=== PATIENT | male | born 1995 | race Caucasian/White ===

== ENCOUNTER 2019-10-13 20:12 | Emergency (ER) | payer OTHER ==
[~2019-10-13] VITALS: Ht 175.3 cm; Wt 61.2 kg
--- OUTSIDE RECORDS SUMMARY | ~2019-10-13 | XMS | Encounter Summary ---
Demographics + + + | Address | [address] | | | [place] [address] | + + + | Home Phone | | + + + | Preferred Language | Unknown | + + + | Marital Status | Single | + + + | Gnosticist Affiliation | Unknown | + + + | Race | Unknown | + + + | Ethnic Group | Unknown | + + + Author + + + | Author | [facility] | | | and Dariusana | + + + | Organization | [facility] | | | and Dariusana | + + + | Address | Unknown | + + + | Phone | Unavailable | + + + Support + + +---------+ + | Name | Relationship | Address | Phone | + + +---------+ + | June Salcedo | ECON | Unknown | Unavailable | + + +---------+ + Care Team Providers + +------+ + | Care Toe Puncher Name | Role | Phone | + +------+ + PCP | Unavailable | + +------+ + Encounter Details +--------+ + + + + | Date | Type | Department | Care Team | Description | +--------+ + + + + | 10/16/ | Emergency | [facility] | Liza Stephens, | Ureterolithiasis; | | 2014 | | MEDICAL CENTER | [facility] [address] | Renal colic; | | | | EMERGENCY CENTER | [place] [address] | Hydrocele, right | | | | [address] | [phone] | | | | | [place], [place] | | | | | | [address] | | | | | | [phone] | | | +--------+ + + + + Social History + +-------+ +--------+------+ | Tobacco Use | Types | Packs/Day | Years | Date | | | | | Used | | + +-------+ +--------+------+ | Current Every Day | | 1 | | | | Smoker | | | | | + +-------+ +--------+------+ + + + | Sex Assigned at | Date Recorded | | | | + + + | Not on file | | + + + documented as of this encounter ED Notes Conversion Transaction, Provider Unknown - 10/16/2014 6:46 PM PDTFormatting of this note m ight be different from the original. ED Notes by Elvin Lora RN at 10/16/14 2899 Author: Elvin Lora RN Service: (none) Author Type: Registered Nurse Filed: 10/16/141845 Date of Service: 10/16/141845 Status: Signed Individual Pension Consultant: Elvin Lora RN (Registered Nurse) Urine red in color, dip not done, sample sent to lab. Elvin Lora RN 10/16/141845 Liza Oliver MD - 10/16/2014 5:31 PM PDTFormatting of this note might be different from the or iginal. ED Provider Notes by Gretchen Stephens MD at 10/16/141730 Author: Gretchen Stephens MD Service: (none) Author Type: Physician Filed: 10/17/14 0229 Date of Service: 10/16/141730 Status: Signed Individual Pension Consultant: Gretchen Stephens MD (Physician) [facility] Department of Emergency Medicine History of Present Illness Patient Identification Kobe Salcedo is a 18 y.o. male. Patient information was obtained from patient and parent. History/Exam limitations: none. Patient presented to the Emergency Department by: Car Chief Complaint Chief Complaint Patient presents with Hematuria david blood with hx of stones Testicle Pain known testicular cyst The patient complains of hematuria and testicle pain. Onset of symptoms was 1 month ago, wi th a constant course since that time. The patient also complains of hematuria (onset 3 days ago) and right flank pain over this same time period. Denies any further complaints. Mother reports that the pt has been passing kidney stones. The patient describes the quality and lo cation of the symptoms as the following: testicle pain that he had an US done for where he w as told that he had a testicular cyst and that this was not going to need treatment. Pt was seen by a urologist for this and was told that there was no surgical procedure they could do since he was to young but was told to come to the ED if his pain worsened. Pt was sent over by his PCP for more imaging done today. There was no other care prior to arrival. History reviewed. No pertinent past medical history. History reviewed. No pertinent past surgical history. Prior to Admission medications Not on File No Known Allergies History Social History Marital Status: Single Spouse Name: N/A Number of Children: N/A Years of Education: N/A Occupational History Not on file. Social History Main Topics Smoking status: Current Every Day Smoker -- 1.00 packs/day for 5 years Smokeless tobacco: Not on file Alcohol Use: No Drug Use: No Sexual Activity: Not on file Other Topics Concern Not on file Social History Narrative No narrative on file History reviewed. No pertinent family history. Review of Systems Constitutional: No fever ENT: No blindness, no rhinitis, no sore throat Cardiovascular: No chest pain Respiratory: No shortness of breath, cough Gastrointestinal: No abdominal pain, N/V/D, black or bloody stools Genitourinary: Yes testicular pain, hematuria No dysuria Musculoskeletal: Yes flank pain Skin: No laceration or rash Neuro and psych: No head injury, seizure, headache Endocrine/Heme/Lymph: No easy bruising or bleeding. Physical Exam BP 119/58 mmHg | Pulse 68 | Temp(Src) 98.8 F (37.1 C) (Temporal) | Resp 18 | Ht 1.753 m (5' 9.02") | Wt 64.4 kg (141 lb 15.6 oz) | BMI 20.96 kg/m2 | SpO2 98% Vital Sign interpretation: WNL Pulse Oximetry interpretation: Normal General: Alert, in no apparent distress Eyes: Non-icteric ENT: Normal external exam Neck: Supple Cardiovascular: Warm and well perfused Respiratory: No respiratory distress Extremities: DEL REAL Back: Normal ROM Skin: Color normal Warm and dry No rash Neuro: Alert, no AMS No gross motor/sensory deficits Medical Decision Making and Emergency Department Course ED Department Course Pt's testicular pain was evaluated previously and he was found to have a cyst (hydrocele I believe), which did not require treatment. He has been doing pretty well until the last thr ee days, where he has had hematuria and flank pain. He was told to come for eval. [facility], I think this is the most likely source of sx. Will check with CT renal and make sure labs ok. 6:21 PM: CT renal stone reviewed. 6:24 PM: Labs reviewed. 7:04 PM: Urine reviewed. 7:07 PM: US reviewed. Pt has a very large 9mm stone at the UVJ. It is not currently obstructive. This will nee d removal almost for sure. He has a urologist in [place] and mom would like to call him i n the AM. No signs of infection. He does not like stronger pain meds and is declining a sc ript for them at this time. I will write for flomax, [place], but I am not expecting it to work. 7:41 PM: Patient reevaluation. Patient is stable and feeling better at this time. I discuss ed all ED results and my clinical impression with the patient. Patient is ready for discharg e after dose of Flomax. I advised patient to follow up with Dr. Holloway, urologist in [place] and we discussed the emergent signs and symptoms that would necessitate a return to ED. The patient understands and agrees with the plan. All questions and concerns addressed. Will akilah fletcher home with an Rx for Flomax. ED Medication Administration from 10/16/2014 1632 to 10/16/20142158 Date/Time Order Dose Route Action Action by 10/16/20142005 tamsulosin (FLOMAX) capsule 0.4 mg 0.4 mg Oral Given Truman Franco Records Reviewed Old medical records. Nursing notes. Laboratory Evaluation Results Procedure Component Value Ref Range Date/Time Culture, Urine [[id number]] Collected: 10/16/141838 Order Status: Sent Specimen Information: Urine / Urine, Clean Catch Updated: 10/16/142127 Urine Microscopic [[id number]] (Abnormal) Collected: 10/16/141838 Order Status: Completed Specimen Information: Urine / Urine, Clean Catch Updated: 01/20 190 WBC 1-5 0 - 5 /hpf RBC >100 0 - 2 /hpf EPITHELIAL 1-5 /lpf BACTERIA 1+ (A) NONE SEEN Mucus, UA 1+ Complete Metabolic Panel [[id number]] Collected: 10/16/14 175 Order Status: Completed Specimen Information: Blood Updated: 10/16/141823 SODIUM 141 135 - 143 mmol/L POTASSIUM 3.7 3.3 - 4.7 mmol/L CHLORIDE 106 99 - 109 mmol/L CO2 29 23 - 32 mmol/L ANION GAP AGAP 9 5 - 20 mmol/L GLUCOSE 85 65 - 99 mg/dL BUN 9 8 - 25 mg/dL CREATININE 0.90 0.70 - 1.30 mg/dL BUN/CREAT 10 CALCIUM 8.8 8.5 - 10.5 mg/dL TOTAL PROTEIN 7.6 6.1 - 8.0 g/dL Albumin 4.1 3.3 - 4.7 g/dL GLOBULIN 3.5 1.3 - 4.9 g/dL A/G 1.2 1.0 - 2.4 TBIL 0.7 0.1 - 2.0 mg/dL ALK PHOS 92 49 - 210 U/L AST 12 <40 U/L ALT 17 10 - 65 U/L EGFR >60 mL/min/1.73m2 Result: CALCULATION NOT PERFORMED. RESULT NOT VALID IF AGE LT 20 YEARS. CBC w Auto Diff [[id number]] Collected: 10/16/14 3121 Order Status: Completed Specimen Information: Blood Updated: 10/16/14 1809 WBC 7.10 4.50 - 11.00 K/uL RBC 4.63 4.50 - 5.30 M/uL HGB 14.9 13.0 - 16.0 g/dL HCT 42.4 37.0 - 49.0 % MCV 91.7 78.0 - 98.0 fl MCH 32.1 25.0 - 35.0 pg MCHC 35.0 31.0 - 37.0 g/dL RDW SD 42.0 37 - 53 fl PLT 190 150 - 450 K/uL MPV 7.7 fl DIFF TYPE AUTOMATED NEUTROPHILS 59.95 % LYMPHOCYTES 30.79 % MONOCYTES 7.69 % EOSINOPHILS 1.06 % BASOPHILS 0.51 % NEUTROPHILS ABS 4.26 1.50 - 7.00 K/uL LYMPHOCYTES ABS 2.19 1.10 - 4.50 K/uL MONOCYTES ABS 0.55 0.00 - 0.90 K/uL EOSINOPHILS ABS 0.08 0.00 - 0.20 K/uL BASOPHILS ABS 0.04 0.00 - 0.10 K/uL I personally reviewed the lab results and they have been posted to the chart. Pertinent po sitive and negative findings have been addressed appropriately. Radiology and EKG Evaluation Imaging Results US Scrotum (Final result) Result time: 10/16/14 19:07:00 Final result by Rad Results In Jason (10/16/14 19:07:00) Impression: No intratesticular lesion or torsion. Small cystic extratesticular structures potentially i ncidental to symptoms Narrative: HISTORY: 18 - year-old male with pain TECHNIQUE: Ultrasound of the testicles and scrotum. No prior similar study available for comparison. FINDINGS: Right testicle measures 4.1 x 2.0 x 2.9 cm. Left testicle measures 4.3 x 2.2 x 2.4 cm. Testicles are symmetric and normal in echogenicity. No intratesticular neoplasm. Normal vas cular flow. Right epididymis maximally measures 0.8 cm. Left epididymis measures maximally 0.9 cm. About the lower pole of the left testicle there is a small amount of fluid, could be a smal l loculated hydrocele. There is no complex lesion or mass. A small left epidermal cyst measu res about 3 mm in size. No evident hernia. CT Renal Stone Study (Final result) Result time: 10/16/14 18:21:52 Final result by Rad Results In Jason (10/16/14 18:21:52) Impression: 1. Multiple stones at the right ureterovesicular junction. The largest measuring 9 mm in d iameter Hounsfield units 960. 2. No left hydronephrosis or hydroureter. No right hydronephrosis. 3. There are nonobstructing stones of the right upper pole of the kidney as described lexi holm Narrative: KOBE SALCEDO [address] URINARY TRACT ABDOMEN PELVIS WO CONTRAST 10/16/2014 6:08 PM INDICATION: Hematuria. COMPARISON: None. TECHNIQUE: 5-mm axial images were acquired through the abdomen and pelvis. No oral or IV co ntrast was used. FINDINGS: Lung bases are clear. Liver, spleen, distal esophagus, stomach, duodenum, pancreas, adrenal glands are normal. No acute colonic abnormality. No colonic wall thickening. Appendix is normal. No small bowel dilation. No adjacent mesenteric edema. No retroperitoneal, pelvic or inguinal adenopathy. Scattered calcifications of the right kidney involving the upper pole (05/29, ). Right ure teral pelvic junction multiple stones, the largest measuring 9 mm in craniocaudal dimension. Hounsfield units measure 960. No distal right ureteral stone. No bladder stones. No bladder wall thickening. No left hydronephrosis. No left hydroureter. No left nephroureterolithiasis. No acute osseous abnormality. ED Diagnoses Final diagnoses Ureterolithiasis Renal colic Hydrocele, right Disposition: ED Disposition Discharge Condition at discharge: Stable Follow-up Information Follow up With Details Comments Contact Info Kobe Holloway MD Call in 1 day [address] [place] [id number] [facility] Emergency Department If symptoms worsen [address] [address] Discharge Medications: Discharge Medication List as of 10/16/2014 8:08 PM START taking these medications Details tamsulosin (FLOMAX) 0.4 MG capsule Take 1 capsule by mouth daily., Starting 10/16/2014, Patriciai l Discontinued, Print Procedures Additional Documentation Procedures Attending Note: Documentation assistance provided by Florentin Paredes (Scribe). Information recorded by the scribe has been reviewed and validated by . Martin gary with its contents. MD Gretchen Trammell MD 10/17/149 onversion Transactrufina n, Provider Unknown - 10/16/2014 2:50 PM PDT ED Notes by Colby Hung RN at 10/16/141449 Author: Colby Hung RN Service: (none) Author Type: Registered Nurse Filed: 10/16/141449 Date of Service: 10/16/141449 Status: Signed Individual Pension Consultant: Colby Hung RN (Registered Nurse) Provider in [place] would like a call back with findings, Colby Hung RN 10/16/141449 docume nted in this encounter Plan of Treatment Not on filedocumented as of this encounter Procedures + +--------+ + + + | Procedure Name | Priori | Date/Time | Associated Diagnosis | Comments | | | ty | | | | + +--------+ + + + | US SCROTUM AND | Routin | 10/16/2014 | | Results for this | | TESTICLES | e | 6:59 PM | | procedure are in the | | | | PDT | | results section. | + +--------+ + + + | URINALYSIS, | Routin | 10/16/2014 | | Results for this | | MICROSCOPIC ONLY | e | 6:39 PM | | procedure are in the | | | | PDT | | results section. | + +--------+ + + + | CULTURE, URINE | STAT | 10/16/2014 | | Results for this | | | | 6:39 PM | | procedure are in the | | | | PDT | | results section. | + +--------+ + + + | CT RENAL STONE WO | Routin | 10/16/2014 | | Results for this | | CONTRAST | e | 6:08 PM | | procedure are in the | | | | PDT | | results section. | + +--------+ + + + | EXTERNAL LAB: CBC | Routin | 10/16/2014 | | Results for this | | | e | 5:55 PM | | procedure are in the | | | | PDT | | results section. | + +--------+ + + + | COMPREHENSIVE | Routin | 10/16/2014 | | Results for this | | METABOLIC PANEL | e | 5:55 PM | | procedure are in the | | | | PDT | | results section. | + +--------+ + + + documented in this encounter Results US Scrotum And Testicles (10/16/2014 6:59 PM PDT) + + | Specimen | + + | | + + + + + | Impressions | Performed At | + + + | No intratesticular lesion or torsion. Small cystic | | | extratesticular structures potentially incidental to symptoms | | | | | + + + + + + | Narrative | Performed At | + + + | HISTORY: 18 - year-old male with pain TECHNIQUE: Ultrasound of | | | the testicles and scrotum. No prior similar study available for | | | comparison. FINDINGS: Right testicle measures 4.1 x 2.0 x 2.9 | | | cm. Left testicle measures 4.3 x 2.2 x 2.4 cm. Testicles are | | | symmetric and normal in echogenicity. No intratesticular neoplasm. | | | Normal vascular flow. Right epididymis maximally measures 0.8 cm. | | | Left epididymis measures maximally 0.9 cm. About the lower pole | | | of the left testicle there is a small amount of fluid, could be a | | | small loculated hydrocele. There is no complex lesion or mass. A small | | | left epidermal cyst measures about 3 mm in size. No evident hernia. | | | | | + + + + + | Procedure Note | + + | Jason, Rad Conversion - 10/21/2018 9:53 AM PDT HISTORY: 18 - year-old male with pain | | TECHNIQUE: Ultrasound of the testicles and scrotum. No prior similar study available for | | comparison. FINDINGS: Right testicle measures 4.1 x 2.0 x 2.9 cm.Left testicle measures | | 4.3 x 2.2 x 2.4 cm. Testicles are symmetric and normal in echogenicity. No | | intratesticular neoplasm. Normal vascular flow. Right epididymis maximally measures 0.8 | | cm.Left epididymis measures maximally 0.9 cm. About the lower pole of the left testicle | | there is a small amount of fluid, could be a small loculated hydrocele. There is no | | complex lesion or mass. A small left epidermal cyst measures about 3 mm in size. No | | evident hernia. IMPRESSION: No intratesticular lesion or torsion. Small cystic | | extratesticular structures potentially incidental to symptoms | |Testicles are symmetric and normal in echogenicity. No intratesticular neoplasm. Normal vas cular flow. | | | |Right epididymis maximally measures 0.8 cm. | |Left epididymis measures maximally 0.9 cm. | | | |About the lower pole of the left testicle there is a small amount of fluid, could be a smal l loculated hydrocele. There is no complex lesion or mass. A small left epidermal cyst measu res about 3 mm in size. No evident hernia. | | | |IMPRESSION: | | | |No intratesticular lesion or torsion. Small cystic extratesticular structures potentially i ncidental to symptoms | | | | | | | | | + + Urinalysis, Microscopic Only (10/16/2014 6:39 PM PDT) + + + + + + | Component | Value | Ref Range | Performed | Pathologist | | | | | At | Signature | + + + + + + | WBC, UA | 1-5Comment: Testing | 0 - 5 /hpf | EXTERNAL | | | | performed at [facility];[address] | | LAB | | | [address];[place] | | | | | | [phone] | | | | + + + + + + | RBC, UA | >100Comment: Testing | 0 - 2 /hpf | EXTERNAL | | | | performed at [facility];[address] | | LAB | | | | [address];[place] | | | | | | [address] | | | | + + + + + + | Epithelial | 1-5Comment: Testing | /lpf | EXTERNAL | | | Cells | performed at [facility];[address] | | LAB | | | [address];[place] | | | | | | [phone] | | | | + + + + + + | Bacteria, | 1+ (A)Comment: Testing | | EXTERNAL | | | UA | performed at [facility];[address] | | LAB | | | [address];[place] | | | | | | [phone] | | | | + + + + + + | Mucus, | 1+Comment: Testing | | EXTERNAL | | | Urine | performed at [facility];[address] | | LAB | | | [address] | | | | | | [address] | | | | + + + + + + + + | Specimen | + + | Urine specimen | | (specimen) | + + + +---------+ + + | Performing | Address | City/State/Zipcode | Phone Number | | Organization | | | | + +---------+ + + | EXTERNAL LAB | | | | + +---------+ + + Culture, Urine (10/16/2014 6:39 PM PDT) + + | Specimen | + + | Urine specimen | | (specimen) | + + + + + | Narrative | Performed At | + + + | Specimen Description URINE,CLEAN CATCH CULTURE | EXTERNAL LAB | | NO GROWTH | | | Testing performed at [facility], [address] | | [place] [address] | | + + + + +---------+ + + | Performing | Address | City/State/Zipcode | Phone Number | | Organization | | | | + +---------+ + + | EXTERNAL LAB | | | | + +---------+ + + CT Renal Stone Wo Contrast (10/16/2014 6:08 PM PDT) + + | Specimen | + + | | + + + + | Addenda | + + | Addendum by Lucio Cagle MD on 10/18/2014 12:24 PM IMPRESSION: (There is a | | typographical error within the impression. The first item should read as below) 1. | | Multiple stones at the right ureteropelvic junction. The largest measuring 9 mm in | | diameter, Hounsfield units 960. | | 12:24 PM | + + + + + | Impressions | Performed At | + + + | 1. Multiple stones at the right ureterovesicular junction. The | | | largest measuring 9 mm in diameter Hounsfield units 960. 2. No left | | | hydronephrosis or hydroureter. No right hydronephrosis. 3. There | | | are nonobstructing stones of the right upper pole of the kidney as | | | described above. Electronically signed by Lucio Cagle MD on | | | 10/16/2014 6:21 PM | | + + + + + + | Narrative | Performed At | + + + | KOBE SALCEDO [address] URINARY TRACT ABDOMEN | | | PELVIS WO CONTRAST 10/16/2014 6:08 PM INDICATION: Hematuria. | | | COMPARISON: None. TECHNIQUE: 5-mm axial images were acquired | | | through the abdomen and pelvis. No oral or IV contrast was used. | | | FINDINGS: Lung bases are clear. Liver, spleen, distal | | | esophagus, stomach, duodenum, pancreas, adrenal glands are normal. | | | No acute colonic abnormality. No colonic wall thickening. Appendix is | | | normal. No small bowel dilation. No adjacent mesenteric edema. | | | No retroperitoneal, pelvic or inguinal adenopathy. Scattered | | | calcifications of the right kidney involving the upper pole (05/29, | | | 25). Right ureteral pelvic junction multiple stones, the largest | | | measuring 9 mm in craniocaudal dimension. Hounsfield units measure | | | 960. No distal right ureteral stone. No bladder stones. No bladder | | | wall thickening. No left hydronephrosis. No left hydroureter. No | | | left nephroureterolithiasis. No acute osseous abnormality. | | + + + + + | Procedure Note | + + | Jason, Rad Conversion - 10/21/2018 9:53 AM MATTHEW SALCEDO1995 18 years MaleCT | | URINARY TRACT ABDOMEN PELVIS WO CONTRAST8/01/2015 6:08 PM INDICATION: Hematuria. | | COMPARISON: None. TECHNIQUE: 5-mm axial images were acquired through the abdomen and | | pelvis. No oral or IV contrast was used. FINDINGS: Lung bases are clear. Liver, spleen, | | distal esophagus, stomach, duodenum, pancreas, adrenal glands are normal. No acute | | colonic abnormality. No colonic wall thickening. Appendix is normal. No small bowel | | dilation. No adjacent mesenteric edema. No retroperitoneal, pelvic or inguinal | | adenopathy. Scattered calcifications of the right kidney involving the upper pole (3/24, | | 25). Right ureteral pelvic junction multiple stones, the largest measuring 9 mm in | | craniocaudal dimension. Hounsfield units measure 960. No distal right ureteral stone. No | | bladder stones. No bladder wall thickening. No left hydronephrosis. No left | | hydroureter. No left nephroureterolithiasis. No acute osseous abnormality. IMPRESSION: | | 1. Multiple stones at the right ureterovesicular junction. The largest measuring 9 mm | | in diameter Hounsfield units 960.2. No left hydronephrosis or hydroureter. No right | | hydronephrosis.3. There are nonobstructing stones of the right upper pole of the kidney | | as described above. | |Liver, spleen, distal esophagus, stomach, duodenum, pancreas, adrenal glands are normal. | | | |No acute colonic abnormality. No colonic wall thickening. Appendix is normal. | | | |No small bowel dilation. No adjacent mesenteric edema. | | | |No retroperitoneal, pelvic or inguinal adenopathy. | | | |Scattered calcifications of the right kidney involving the upper pole (/24, 25). Right ure teral pelvic junction multiple stones, the largest measuring 9 mm in craniocaudal dimension. Hounsfield units measure 960. | | | |No distal right ureteral stone. No bladder stones. No bladder wall thickening. | | | |No left hydronephrosis. No left hydroureter. No left nephroureterolithiasis. | | | |No acute osseous abnormality. | | | |IMPRESSION: | | | |1. Multiple stones at the right ureterovesicular junction. The largest measuring 9 mm in d iameter Hounsfield units 960. | |2. No left hydronephrosis or hydroureter. No right hydronephrosis. | |3. There are nonobstructing stones of the right upper pole of the kidney as described lexi holm | | | | | + + External Lab: [facility] (10/16/2014 5:55 PM PDT) + + + + + + | Component | Value | Ref Range | Performed | Pathologist | | | | | At | Signature | + + + + + + | WBC | 7.10Comment: Testing | 4.50 - 11.00 | EXTERNAL | | | | performed at [facility];[address] | K/uL | LAB | | | | [address];[place] | | | | | | [phone] | | | | + + + + + + | Non- | 4.63Comment: Testing | 4.50 - 5.30 | EXTERNAL | | | Red Blood | performed at [facility];[address] | M/uL | LAB | | | Cells | [address];[place] | | | | | Counted | [id number] | | | | + + + + + + | Hemoglobin | 14.9Comment: Testing | 13.0 - 16.0 | EXTERNAL | | | | performed at [facility];[address] | g/dL | LAB | | | | [address] | | | | | | [address] | | | | + + + + + + | Hematocrit, | 42.4Comment: Testing | 37.0 - 49.0 % | EXTERNAL | | | POC | performed at [facility];[address] | | LAB | | | | [address] | | | | | | [address] | | | | + + + + + + | MCV | 91.7Comment: Testing | 78.0 - 98.0 fl | EXTERNAL | | | | performed at [facility];[address] | | LAB | | | | [address] | | | | | | [address] | | | | + + + + + + | MCH | 32.1Comment: Testing | 25.0 - 35.0 pg | EXTERNAL | | | | performed at [facility];[address] | | LAB | | | | [address] | | | | | | [address] | | | | + + + + + + | MCHC | 35.0Comment: Testing | 31.0 - 37.0 | EXTERNAL | | | | performed at [facility];888 | g/dL | LAB | | | | [address];[place] | | | | | | [address] | | | | + + + + + + | RDW-CV | 42.0Comment: Testing | 37 - 53 fl | EXTERNAL | | | | performed at [facility];[address] | | LAB | | | | [address];[place] | | | | | | [address] | | | | + + + + + + | Platelet | 190Comment: Testing | 150 - 450 K/uL | EXTERNAL | | | Count | performed at [facility];[address] | | LAB | | | Plasma | [address];[place] | | | | | | [address] | | | | + + + + + + | MPV | 7.7Comment: Testing | fl | EXTERNAL | | | | performed at [facility];[address] | | LAB | | | | [address];[place] | | | | | | [address] | | | | + + + + + + | Differentia | AUTOMATEDComment: | | EXTERNAL | | | l Type | Testing performed at | | LAB | | | | [facility];[address];[place] [address] | | | | + + + + + + | % Segmented | 59.95Comment: Testing | % | EXTERNAL | | | | performed at [facility];888 | | LAB | | | Neutrophils | [address];[place] | | | | | | [address] | | | | + + + + + + | % | 30.79Comment: Testing | % | EXTERNAL | | | Lymphocytes | performed at [facility];[address] | | LAB | | | | [address];[place] | | | | | | [address] | | | | + + + + + + | % Monocytes | 7.69Comment: Testing | % | EXTERNAL | | | | performed at [facility];[address] | | LAB | | | | [address];[place] | | | | | | [address] | | | | + + + + + + | % | 1.06Comment: Testing | % | EXTERNAL | | | Eosinophils | performed at [facility];[address] | | LAB | | | | [address];[place] | | | | | | [address] | | | | + + + + + + | % Basophils | 0.51Comment: Testing | % | EXTERNAL | | | | performed at [facility];[address] | | LAB | | | | [address];[place] | | | | | | [address] | | | | + + + + + + | Absolute | 4.26Comment: Testing | 1.50 - 7.00 | EXTERNAL | | | Segmented | performed at [facility];888 | K/uL | LAB | | | Neutrophils | [address];[place] | | | | | | [address] | | | | + + + + + + | Absolute | 2.19Comment: Testing | 1.10 - 4.50 | EXTERNAL | | | Lymphocytes | performed at [facility];888 | K/uL | LAB | | | | [address];[place] | | | | | | [address] | | | | + + + + + + | Absolute | 0.55Comment: Testing | 0.00 - 0.90 | EXTERNAL | | | Monocytes | performed at [facility];888 | K/uL | LAB | | | | [address];[place] | | | | | | [address] | | | | + + + + + + | Absolute | 0.08Comment: Testing | 0.00 - 0.20 | EXTERNAL | | | Eosinophils | performed at [facility];888 | K/uL | LAB | | | | [address];[place] | | | | | | [address] | | | | + + + + + + | Absolute | 0.04Comment: Testing | 0.00 - 0.10 | EXTERNAL | | | Basophils | performed at [facility];888 | K/uL | LAB | | | | [address];[place] | | | | | | [address] | | | | + + + + + + + + | Specimen | + + | Blood specimen | | (specimen) | + + + +---------+ + + | Performing | Address | City/State/Zipcode | Phone Number | | Organization | | | | + +---------+ + + | EXTERNAL LAB | | | | + +---------+ + + Comprehensive Metabolic Panel (10/16/2014 5:55 PM PDT) + + + + + + | Component | Value | Ref Range | Performed | Pathologist | | | | | At | Signature | + + + + + + | Na | 141Comment: Testing | 135 - 143 | EXTERNAL | | | | performed at [facility];888 | mmol/L | LAB | | | | [address];[place] | | | | | | [address] | | | | + + + + + + | K | 3.7Comment: Testing | 3.3 - 4.7 | EXTERNAL | | | | performed at [facility];888 | mmol/L | LAB | | | | [address];[place] | | | | | | [address] | | | | + + + + + + | Cl | 106Comment: Testing | 99 - 109 mmol/L | EXTERNAL | | | | performed at [facility];[address] | | LAB | | | | [address];[place] | | | | | | [address] | | | | + + + + + + | CO2 | 29Comment: Testing | 23 - 32 mmol/L | EXTERNAL | | | | performed at [facility];[address] | | LAB | | | | [address];[place] | | | | | | [address] | | | | + + + + + + | Anion Gap | 9Comment: Testing | 5 - 20 mmol/L | EXTERNAL | | | | performed at [facility];[address] | | LAB | | | | [address];[place] | | | | | | [address] | | | | + + + + + + | Glucose, | 85Comment: Testing | 65 - 99 mg/dL | EXTERNAL | | | Fasting | performed at [facility];[address] | | LAB | | | | [address];[place] | | | | | | [address] | | | | + + + + + + | BUN | 9Comment: Testing | 8 - 25 mg/dL | EXTERNAL | | | | performed at [facility];[address] | | LAB | | | | [address];[place] | | | | | | [address] | | | | + + + + + + | Creatinine | 0.90Comment: Testing | 0.70 - 1.30 | EXTERNAL | | | | performed at [facility];888 | mg/dL | LAB | | | | [address];[place] | | | | | | [address] | | | | + + + + + + | BUN/Creatin | 10Comment: Testing | | EXTERNAL | | | ine Ratio | performed at [facility];[address] | | LAB | | | | [address];[place] | | | | | | [address] | | | | + + + + + + | Calcium | 8.8Comment: Testing | 8.5 - 10.5 | EXTERNAL | | | | performed at [facility];888 | mg/dL | LAB | | | | [address];[place] | | | | | | [address] | | | | + + + + + + | Protein, | 7.6Comment: Testing | 6.1 - 8.0 g/dL | EXTERNAL | | | Total | performed at [facility];[address] | | LAB | | | | [address];[place] | | | | | | [address] | | | | + + + + + + | Albumin | 4.1Comment: Testing | 3.3 - 4.7 g/dL | EXTERNAL | | | | performed at [facility];[address] | | LAB | | | | [address];[place] | | | | | | [address] | | | | + + + + + + | Globulin | 3.5Comment: Testing | 1.3 - 4.9 g/dL | EXTERNAL | | | | performed at [facility];[address] | | LAB | | | | [address];[place] | | | | | | [address] | | | | + + + + + + | A/G Ratio | 1.2Comment: Testing | 1.0 - 2.4 | EXTERNAL | | | | performed at [facility];[address] | | LAB | | | | [address];[place] | | | | | | [address] | | | | + + + + + + | Bilirubin | 0.7Comment: Testing | 0.1 - 2.0 mg/dL | EXTERNAL | | | Total | performed at [facility];[address] | | LAB | | | | [address];[place] | | | | | | [address] | | | | + + + + + + | ALP, | 92Comment: Testing | 49 - 210 U/L | EXTERNAL | | | External | performed at [facility];[address] | | LAB | | | | [address];[place] | | | | | | [address] | | | | + + + + + + | AST | 12Comment: Testing | U/L | EXTERNAL | | | | performed at [facility];[address] | | LAB | | | | [address];[place] | | | | | | [address] | | | | + + + + + + | ALT | 17Comment: Testing | 10 - 65 U/L | EXTERNAL | | | | performed at [facility];[address] | | LAB | | | | [address];[place] | | | | | | [address] | | | | + + + + + + | Estimated | CALCULATION NOT | mL/min/1.73m2 | EXTERNAL | | | GFR | PERFORMED. RESULT NOT | | LAB | | | | VALID IF AGE LT 20 | | | | | | YEARS.Comment: Testing | | | | | | performed at [facility];[address] | | | | | | [address];[place] | | | | | | [address] | | | | + + + + + + + + | Specimen | + + | Blood specimen | | (specimen) | + + + +---------+ + + | Performing | Address | City/State/Zipcode | Phone Number | | Organization | | | | + +---------+ + + | EXTERNAL LAB | | | | + +---------+ + + documented in this encounter Visit Diagnoses + + | Diagnosis | + + | Ureterolithiasis Calculus of ureter | + + | Renal colic | + + | Hydrocele, right Hydrocele, unspecified | + + documented in this encounter
--- OUTSIDE RECORDS SUMMARY | ~2019-10-13 | XMS | Clinical Summary ---
Demographics + + + | Address | [address] | | | [place] [address] | + + + | Home Phone | | + + + | Preferred Language | Unknown | + + + | Marital Status | Single | + + + | Restorationism Affiliation | Unknown | + + + | Race | Unknown | + + + | Ethnic Group | Unknown | + + + Author + + + | Author | [facility] | | | and [place] | + + + | Organization | [facility] | | | and [place] [...] Team Providers + +------+ + | Care Guide Cruise Name | Role | Phone | + +------+ + | Bonnie Menjivar PA-C | PCP | | + +------+ + Allergies Not on File Medications Not on file Active Problems Not on file Social History + +-------+ +--------+------+ | Tobacco [...] on file | | + + + Last Filed Vital Signs Not on file Plan of Treatment + + +-------+ + | Health Maintenance | Due Date | Last | Comments | | | | Done | | + + +-------+ + | Vaccine: | | | | | Dtap/Tdap/Td (1 - | 6 | | | | Tdap) | | | | + + +-------+ + | Vaccine: Influenza | | | | | (#1) | 0 | | | + + +-------+ + Results Not on filefrom Last 3 Months"
[2019-10-13] MEDS ORDERED: NORCO 5-325 TA1 EACH PO (21:36)
== END 2019-10-13 22:45 | disposition home or self-care (01) ==
LOC: ED 20:12
DX: S51.812A Laceration without foreign body of left forearm, initial encounter (principal); F17.200 Nicotine dependence, unspecified, uncomplicated; W26.0XXA Contact with knife, initial encounter
CPT/HCPCS: 12004; 90471; 90715; 99282-25